=== PATIENT | female | born 1980 ===

== ENCOUNTER 2020-07-22 10:11 | Inpatient (IN) | payer OTHER ==
[2020-07-22] MEDS ORDERED: LACTATED RINGERS 2,000 ML ONE (10:34)
[2020-07-22] MEDS ORDERED: LACTATED RINGERS 1,000 ML IV SCH (11:00)
[2020-07-22] MEDS ORDERED: ceFAZolin/Water 2 GM/20 ML 2 GM/20 ML SYRINGE IV NR (11:00)
[2020-07-22] MEDS ORDERED: FAMOTIDINE 20 MG/2 ML INJ IV SCH (11:00)
[2020-07-22] MEDS ORDERED: BICITRA ORAL LIQD 30ML PO SCH (11:00)
[2020-07-22] MEDS ORDERED: OXYTOCIN DRIP 30 UNITS/500 ML BAG IV SCH ×2 (11:00→17:00)
[2020-07-22] MEDS ORDERED: METOCLOPRAMIDE 10 MG/2 ML INJ IV SCH (11:00)
[2020-07-22 11:08] LABS: Basophils % (Auto) 0.5 % (0.0-1.8); Eosinophils % (Auto) 0.6 % (0.0-4.3); Hemoglobin 12.2 gm/dl (10.1-14.3); Lymphocytes # (Auto) 1.2 K/mm3 (1.2-5.4); Lymphocytes % (Auto) 21.2 % (13.4-35.0); Mean Corpuscular HGB Conc 34 % (30-34); Mean Corpuscular Volume 86 fl (79-97); Monocytes # (Auto) 0.4 K/mm3 (0.0-0.8); Monocytes % (Auto) 7.3 % (0.0-7.3); Platelet Count 226 K/mm3 (140-440); Red Blood Count 4.18 M/mm3 (3.65-5.03); Red Cell Distribution Width 13.7 % (13.2-15.2)
[2020-07-22] MEDS ORDERED: BUPIVACAINE/PF (0.5%) 5 MG/1 ML 30 ML VIAL INFILTRATI ONE (11:58)
[2020-07-22] MEDS ORDERED: dexAMETHasone 20 MG/5 ML VIAL ONE (11:58)
[2020-07-22] MEDS ORDERED: KETOROLAC 30 MG/1 ML INJ ONE (11:58)
[2020-07-22] MEDS ORDERED: ONDANSETRON 4 MG/2 ML INJ ONE (11:58)
[2020-07-22] MEDS ORDERED: NalbUPHINE 10 MG/1 ML INJ IV PRN (12:31)
[2020-07-22] MEDS ORDERED: NALOXONE 0.4 MG/1 ML INJ IV PRN ×2 (12:31→16:23)
--- NOTE | 2020-07-22 12:32 | Anesthesia Day of Surgery ---
Anesthesia Day of Surgery - Day of Surgery Patient Examined: Yes Patient H&P Reviewed: Yes Patient is NPO: Yes Beta Blockers: No Cardiac Clearance: No Pulmonary Clearance: No Kishan's Test: N/A
--- NOTE | 2020-07-22 12:33 | Anesthesia Consultation ---
Anesthesia Consult and Med Hx Date of service: 07/22/20 - Airway Anesthetic Teeth Evaluation: Good ROM Head & Neck: Adequate Mental/Hyoid Distance: Adequate Mallampati Class: Class II Intubation Access Assessment: Probably Good - Pulmonary Exam CTA: Yes - Cardiac Exam Cardiac Exam: RRR - Pre-Operative Health Status ASA Pre-Surgery Classification: ASA2 Proposed Anesthetic Plan: Spinal Nerve Block: TAP - Pulmonary Hx Smoking: No Hx Asthma: No Hx Sleep Apnea: No - Cardiovascular System Hx Hypertension: No Hx Heart Attack/AMI: No Hx Angina: No - Central Nervous System Hx Seizures: No Hx Psychiatric Problems: No - Gastrointestinal Hx Gastroesophageal Reflux Disease: No - Endocrine Hx Renal Disease: No Hx Insulin Dependent Diabetes: No Hx Non-Insulin Dependent Diabetes: No Hx Hypothyroidism: No Hx Hyperthyroidism: No - Hematic Hx Anemia: No Hx Sickle Cell Disease: No - Other Systems Hx Alcohol Use: No Hx Obesity: Yes
[2020-07-22] MEDS ORDERED: fentaNYL-BUPIV 2 MCG/ML-0.125% 200 MCG/100 ML BAG EPIDURAL SCH (13:00)
[2020-07-22] MEDS ORDERED: diphenhydrAMINE 50 MG/ML VIAL IV PRN (13:00)
[2020-07-22] MEDS ORDERED: ONDANSETRON 4 MG/2 ML INJ IV PRN ×2 (13:00→16:25)
[2020-07-22] MEDS ORDERED: PROMETHAZINE 25 MG TAB PO PRN (13:00)
[2020-07-22] MEDS ORDERED: PROMETHAZINE 25 MG RECT SUPP PR PRN (13:00)
--- NOTE | 2020-07-22 13:38 | History and Physical Report ---
History of Present Illness Date of examination: 07/22/20 Date of admission: 07/22/20 10:11 History of present illness: 39 yo with concerns for RH isoimmunization and as a result, [facility] has advised delivery for her at 37 weeks. Her last titer in May was 1:32. No other issues during the . PT was interviewed and consented via phone stranding machine operator. Patient with a history of a x1. Past History Past Medical History: no pertinent history Past Surgical History: section Social history: no significant social history - Obstetrical History Expected Date of Delivery: 08/11/20 Actual Gestation: 37 Week(s) 1 Day(s) : 5 Para: 4 Number of Living Children: 4 Medications and Allergies Allergies Allergy/AdvReac Type Severity Reaction Status Date / Time No Known Allergies Allergy Unverified 07/22/20 10:49 Home Medications Medication Instructions Recorded Confirmed Last Taken Type No Known Home Medications [No 07/22/20 07/22/20 Unknown History Reported Home Medications] Active Meds: Active Medications Citric Acid/Sodium Citrate (Bicitra Oral Liqd 30ml) 30 ml PO ONCE NILSON Stop: 07/22/20 17:00 Last Admin: 07/22/20 13:20 Dose: 30 ml Documented by: Diphenhydramine HCl (Diphenhydramine 50 Mg/Ml Vial) 12.5 mg IV Q2H PRN PRN Reason: Itching Famotidine (Famotidine 20 Mg/2 Ml Inj) 20 mg IV ONCE NILSON Stop: 07/22/20 17:00 Last Admin: 07/22/20 13:18 Dose: 20 mg Documented by: Hydromorphone HCl (Hydromorphone 1 Mg/1 Ml Inj) 0.5 mg IV Q4H PRN PRN Reason: breakthrough pain > 7/10 Lactated Ringer's (Lactated Ringers) 1,000 mls @ 2,250 mls/hr IV PREOP NILSON Stop: 07/23/20 11:27 Oxytocin/Sodium Chloride (Pitocin/Ns 30 Unit/500ml) 30 units in 500 mls @ 0 mls/hr IV TITR NILSON; Protocol Cefazolin Sodium (Ancef/Sterile Water 2 Gm/20 Ml) 2 gm in 20 mls @ 80 mls/hr IV PREOP NR; Protocol Stop: 07/22/20 17:00 Fentanyl/Bupivacaine/Sodium Chlor (Fentanyl-Bupiv 2 Mcg/Ml-0.125%) 200 mcg in 100 mls @ 8 mls/hr EPIDURAL TITRATE NILSON; Protocol Metoclopramide HCl (Metoclopramide 10 Mg/2 Ml Inj) 10 mg IV ONCE NILSON Stop: 07/22/20 17:00 Last Admin: 07/22/20 13:18 Dose: 10 mg Documented by: Nalbuphine HCl (Nalbuphine 10 Mg/1 Ml Inj) 2.5 mg IV Q2H PRN PRN Reason: Itching Naloxone HCl (Naloxone 0.4 Mg/1 Ml Inj) 0.2 mg IV Q2MIN PRN PRN Reason: Res Rate </= 8 or 02 SAT < 92% Ondansetron HCl (Ondansetron 4 Mg/2 Ml Inj) 4 mg IV Q8H PRN PRN Reason: Nausea And Vomiting Promethazine HCl (Promethazine 25 Mg Tab) 25 mg PO Q6H PRN PRN Reason: Nausea And Vomiting Promethazine HCl (Promethazine 25 Mg Rect Supp) 25 mg WV Q6H PRN PRN Reason: Nausea And Vomiting Sodium Chloride (Sodium Chloride 0.9% 10 Ml Flush Syringe) 10 ml IV PRN NR Stop: 08/01/20 12:59 Review of Systems All systems: negative (except HPI) - Vital Signs Vital signs: Vital Signs Pulse BP 67 121/66 07/22/20 10:13 07/22/20 10:13 Temp Pulse Resp BP Pulse Ox 67 121/66 99 07/22/20 10:54 07/22/20 10:13 07/22/20 10:54 - Physical Exam Abdomen: Positive: normal appearance, soft. Negative: tenderness - Obstetrical FHR: category 1 Results Result Diagrams: 07/22/20 10:40 Abnormal lab results 07/22/20 Range/Units 10:40 Seg Neutrophils % 70.4 H (40.0-70.0) % All other labs normal. Assessment and Plan - Patient Problems (1) Rh isoimmunization Current Visit: Yes Status: Acute (2) Previous section Current Visit: Yes Status: Acute Plan to address problem: Patient for scheduled repeat at 37 weeks and 1 day due to concerns for Rh isoimmunization. Via the phone stranding machine operator, patient fully consented. Patient fully consented for the surgery. Risks, benefits, and alternatives were all discussed with the patient including risk of bleeding, infection, and potential for injury. Patient understands and accepts these risks. Patient agrees to proceed with surgery. All questions were answered.
[2020-07-22] MEDS ORDERED: ceFAZolin/STERILE WATER 2 GM/20 ML SYRINGE IV ONE (13:45)
[2020-07-22] MEDS ORDERED: LACTATED RINGERS 1,000 ML ONE (14:01)
--- NOTE | 2020-07-22 14:11 | Progress Note ---
Spinal Anesthesia Block - Spinal Anesthesia Block Start Time: 13:35 Stop Time: 14:00 Performed by:: MELISSA FORBES Procedure: Patient is requesting combined spinal epidural for C/S. H&P, labs were reviewed. All questions and concerns were answered. Informed consent was obtained. Timeout performed. Patient in sitting position on side of bed. Sterile prep and drape was performed. 3 mL 1% lidocaine skin wheal at L [3]-L [4]. 18-gauge Tuohy epidural needle advanced to [id number] using air technique, [8]. 27-gauge spinal needle advanced, positive free-flowing CSF. Spinal dose of [Marcaine 10.5mg and Precedex 5mcg]. Epidural catheter advanced to [12] cm. [negative] Aspiration, [negative] test dose. Sterile dressing applied. Patient tolerated procedure well.
[2020-07-22] MEDS ORDERED: WATER FOR IRRIG STERILE 1,500 ML BOTTLE IR ONE (14:25)
[2020-07-22] MEDS ORDERED: SODIUM CHLORIDE 0.9% IRR 1,500 ML BOTTLE IR ONE (14:25)
[2020-07-22] MEDS ORDERED: PHENYLEPHRINE/NS 1,000 MCG/10 ML SYRINGE (OR USE) IV ONE (14:43)
[2020-07-22] MEDS ORDERED: WITCH HAZEL/ GLYCERIN PAD TP PRN (16:23)
[2020-07-22] MEDS ORDERED: LANOLIN/ZINC/DIMETHICONE (LANSINOH) 7 GM TP PRN (16:23)
--- NOTE | 2020-07-22 16:23 | Procedure Note ---
OB Delivery Note - Delivery Date of Delivery: 07/22/20 Surgeon: HANSEL MUSE Estimated blood loss: other (800 cc) - Section Preop diagnosis: repeat , other (Concern for Rh isoimmunization) Postop diagnosis: same section procedure: section, repeat low transverse Disposition: PACU Complications: none Narrative: Indication: 39-year-old at 37 weeks and 1 day was advised by [facility] for delivery at this time due to concern for Rh isoimmunization. Patient with prior x1 patient therefore here for her repeat low-transverse Findings: Normal uterus, tubes and ovaries. Clear fluid. No nuchal cord. Some omental scarring and mild subcutaneous tissue scarring. Otherwise no other significant adhesions noted. Procedure: Patient taken to the operating room and prepped and draped in the usual fashion. Pfannenstiel skin incision was made and carried down to the underlying fascia. Fascia was incised and the incision was extended bilaterally. Rectus fascia dissected off the rectus muscle both superiorly and inferiorly. Peritoneum identified tented up and entered. Peritoneal incision extended superiorly and inferiorly with good visualization of the bladder. Bladder blade was placed. Uterine incision was made and the incision was extended bilaterally. The baby was delivered in the typical vertex fashion. Baby bulb suctioned at the incision site and again after delivery. Cord was delayed clamped and cut and handed off to waiting team. The placenta was delivered spontaneously. The uterus was exteriorized and cleared of all clots and debris. Uterine incision closed with 0 Vicryl in a running locked fashion followed by a second imbricating layer of 0 Vicryl. Good hemostasis was noted after couple of additional [id number] stitches. Her urine was clear. Uterus tubes and ovaries were returned to the abdominal cavity. Gutters were cleared of all clots and debris. Good hemostasis noted. Interceed placed over the uterine incision and over the lower uterine segment in the midline. Attention was turned to the rectus fascia which was reapproximated with 0 Vicryl in a running fashion. Subcutaneous tissue was irrigated and reapproximated with 2-0 Vicryl in a running fashion. Skin was closed with 4-0 Vicryl in a subcuticular fashion followed by Dermabond. The procedure was concluded at this point and the patient tolerated the procedure well. All instrument and lap counts were correct. - A at 1 minute: 9 at 5 minutes: 9 Gender: Male
[2020-07-22] MEDS ORDERED: SIMETHICONE 80 MG CHEW TAB PO PRN (16:25)
[2020-07-22] MEDS ORDERED: SENNOSIDES 8.6 MG TAB PO PRN (16:25)
[2020-07-22] MEDS ORDERED: MAGNESIUM HYDROXIDE (MOM) ORAL LIQD UDC PO PRN (16:25)
--- NOTE | 2020-07-22 16:30 | Progress Note ---
Regional Anesthesia Block - Regional Anesthesia Block Start Time: 15:51 Stop Time: 16:00 Performed By:: MELISSA FORBES ([facility]) Procedure: Patient consented for TAP block for post surgical pain management. Patient identified, monitors placed, and time out performed. Mid axillary TAP identified bilaterally via ultrasound. Skin prepped bilaterally with [chlorhexidine] and [20g stimuplex] needle advanced to the TAP. 35ml [Marcaine 0.25% with 25mcg Precedex and Decadron 5mg] injected under ultrasound guidance on the [left] side. 35ml [Marcaine 0.25% with 25mcg Precedex and Decadron 5mg] injected under ultrasound guidance on the [right] side.
[2020-07-22] MEDS: KETOROLAC 30 MG/1 ML INJ IV PRN (19:04)
[2020-07-22] MEDS: HYDROmorphone 1 MG/1 ML INJ IV PRN (21:09)
[2020-07-23] MEDS: HYDROmorphone 1 MG/1 ML INJ IV PRN (02:39)
[2020-07-23] MEDS: oxyCODONE /ACETAMINOPHEN 5-325MG TAB PO PRN ×2 (06:44→16:15)
--- NOTE | 2020-07-23 07:27 | Post Anesthesia Evaluation ---
- Post Anesthesia Evaluation Patient Participated: Yes Airway Patent: Yes Stable Respiratory Function: Yes Nausea/Vomiting: No Temp > 96.8F: Yes Pain Manageable: Yes Adequeate Hydration: Yes Anesthesia Complications: No Block Receding Appropriately: Yes Patient on Ventilator: No
[2020-07-23 08:41] LABS: Hematocrit 30.8 % (30.3-42.9); Hemoglobin 10.6 gm/dl (10.1-14.3)
[2020-07-23] MEDS: KETOROLAC 30 MG/1 ML INJ IV PRN (08:45)
[2020-07-23] MEDS: IBUPROFEN 800 MG TAB PO PRN (18:35)
--- NOTE | 2020-07-23 20:43 | Progress Note ---
Assessment and Plan A:S/P Repeat LTCS Covid 19 pos Concern for isoimmunization P: Continue routine pp care Encourage ambulation D/C home in 24-48 hrs if stable Subjective - Subjective Date of service: 07/23/20 (LATE ENTRY FOR 9AM) Principal diagnosis: S/P Repeat LTCS Patient reports: appetite normal, voiding normally, pain well controlled, ambulating normally [place]: doing well, bottle feeding Objective - Vital Signs Latest vital signs: Vital Signs Temp Pulse Resp BP BP Pulse Ox 07/23/20 16:45 98.3 F 67 18 128/71 98 07/23/20 08:59 98.3 F 65 18 127/74 98 07/23/20 06:44 18 07/23/20 05:30 98.1 F 74 18 133/71 97 07/23/20 02:39 18 07/23/20 01:25 97.9 F 65 18 143/80 98 07/22/20 21:09 18 Intake and Output 07/23/20 07/23/20 07/23/20 06:59 14:59 22:59 Intake Total 492 227 7370 Output Total 400 Balance -455 074 8429 Intake: Oral 120 360 480 Intake, Free Water 720 Output: Urine 400 Void 400 Other: Total, Intake Amount 120 360 480 Total, Output Amount 400 # Voids Void 1 3 - Exam Breasts: Present: normal Abdomen: Present: normal appearance, soft, normal bowel sounds Vulva: both: normal Uterus: Present: normal, firm, fundal height below umbilicus Extremities: Present: normal Incision: Present: normal, dry, intact, dressed
--- NOTE | 2020-07-24 08:29 | Progress Note ---
Assessment and Plan POD # 2 A: S/P Repeat LTCS COVID 19 pos Mild anemia P: D/C home if stable Subjective - Subjective Date of service: 07/24/20 Principal diagnosis: S/P Repeat LTCS Patient reports: appetite normal, voiding normally, pain well controlled, flatus, ambulating normally : doing well, bottle feeding Objective - Vital Signs Latest vital signs: Vital Signs Temp Pulse Resp BP BP Pulse Ox 07/24/20 00:49 98.5 F 73 20 124/65 99 07/23/20 16:45 98.3 F 67 18 128/71 98 07/23/20 14:43 98.3 F 67 18 128/71 98 07/23/20 08:59 98.3 F 65 18 127/74 98 Intake and Output 07/23/20 07/24/20 07/24/20 22:59 06:59 14:59 Intake Total 1400 Balance 1400 Intake: Oral 680 Intake, Free Water 720 Other: Total, Intake Amount 200 # Voids Void 1 1 - Exam Breasts: Present: normal Abdomen: Present: normal appearance, soft, normal bowel sounds Vulva: both: normal Uterus: Present: normal, firm, fundal height below umbilicus Extremities: Present: normal Incision: Present: normal, dry, intact, dressed
--- NOTE | 2020-07-24 08:38 | Discharge Summary ---
Providers - Providers Date of Admission: 07/22/20 10:11 Date of discharge: 07/24/20 Attending physician: HANSEL MUSE Primary care physician: HANSEL MUSE Hospitalization Reason for admission: section Delivery: Procedure: repeat low transverse Episiotomy: none Laceration: none Incision: normal, dry, intact, dressed Other procedures: none complications: other (POS COVID) Discharge diagnosis: IUP at term delivered Ariel baby: male Hospital course: Pt delivered at 37 wks via repeat c/s r/t poss isoimmunization. She tested pos for COVID 19 pp, but had no pp concerns or problems. See H&P, delivery summary, and pp notes. Condition at discharge: Stable Disposition: - TO HOME OR SELFCARE Plan - Discharge Medications Prescriptions: Ibuprofen [Motrin 800 MG tab] 800 mg PO Q6H PRN #30 tablet PRN Reason: Pain, Mild (1-3) oxyCODONE /ACETAMINOPHEN [Percocet 5/325 mg] 1 tab PO Q6H PRN #30 tablet PRN Reason: Pain, Moderate (4-6) - Provider Discharge Summary Additional instructions: [] Smoking cessation referral if applicable(refer to patient education folder for contact #) [] Refer to [facility]'s [facility] Booklet Call your doctor immediately for: * Fever > 100.5 * Heavy vaginal bleeding ( >1 pad per hour) * Severe persistent headache * Shortness of breath * Reddened, hot, painful area to leg or breast * Drainage or odor from incision. * Keep incision clean and dry at all times and follow doctor's instructions regarding bathing/showering - Follow up plan Follow up: HANSEL MUSE MD [Primary Care Provider] - 14 Days
[2020-07-24] MEDS: oxyCODONE /ACETAMINOPHEN 5-325MG TAB PO PRN (10:25)
[2020-07-24] MEDS: IBUPROFEN 800 MG TAB PO PRN (15:28)
[2020-07-25] MEDS ORDERED: FERROUS SULFATE 325 MG TAB PO SCH (10:00)
[2020-07-25 17:52] VITALS: BP 129/66
== END 2020-07-25 17:56 | disposition home or self-care (01) | DRG 786 ==
LOC: APU 10:11 → OB 17:40
PROVIDERS: ADMIT Obstetrics & Gynecology; ATTEND Obstetrics & Gynecology
PROC: 10D00Z1 Extraction of Products of Conception, Low, Open Approach (ICD-10-PCS; principal; 2020-07-22)
PROC: 3E0234Z Introduction of Serum, Toxoid and Vaccine into Muscle, Percutaneous Approach (ICD-10-PCS; 2020-07-23)
DX: O98.52 Other viral diseases complicating childbirth (principal); U07.1 COVID-19; O36.0930 Maternal care for other rhesus isoimmunization, third trimester, not applicable or unspecified; O34.211 Maternal care for low transverse scar from previous cesarean delivery; O99.02 Anemia complicating childbirth; Z3A.37 37 weeks gestation of pregnancy; Z37.0 Single live birth
CPT/HCPCS: 36415; 85014; 85018; 85025; 85460; 86592; 86706; 86762; 86850; 86870; 86900; 86901; 87806; G0378; C1765; J0690; J1100; J1170; J1885; J2370; J2405; J2765; J2790; J3490; J7120; U0003